=== PATIENT | male | born 1990 | race Caucasian/White ===

== ENCOUNTER 2022-01-25 07:57 | Emergency (ER) | payer BC ==
[2022-01-25 08:02] VITALS: BP 130/82; TEMP 98
--- NOTE | 2022-01-25 08:12 | ED ---
Upper Extremity HPI - General Chief Complaint: Extremity Injury, Upper Stated Complaint: hand injury Time Seen by Provider: 01/25/22 08:05 Source: patient Mode of arrival: ambulatory Limitations: no limitations - History of Present Illness Initial Comments: 31-year-old male with a benign history who states he tripped going upstairs at work last evening while holding a coffee cup in his right hand. He states he fell forward and landed against the stairs with the medial aspect of his right hand and complains of pain over the fifth metacarpal area. He believes he may have broken it. He has no prior history of injury. No other complaints or any other injury or pain. MD Complaint: Injury to:: right, hand - Related Data Allergies Allergy/AdvReac Type Severity Reaction Status Date / Time sulfamethoxazole Allergy Rash/Hives Verified 01/25/22 08:02 [From Bactrim] trimethoprim [From Bactrim] Allergy Rash/Hives Verified 01/25/22 08:02 Review of Systems ROS Statement: Those systems with pertinent positive or pertinent negative responses have been documented in the HPI. ROS Other: All systems not noted in ROS Statement are negative. Past Medical History Past Medical History: No Reported History History of Any Multi-Drug Resistant Organisms: None Reported Past Surgical History: No Surgical Hx Reported Past Psychological History: No Psychological Hx Reported Smoking Status: Vaper Past Alcohol Use History: None Reported Past Drug Use History: None Reported General Exam - General Exam Comments Initial Comments: This is a well-developed well-nourished awake alert oriented 4 male with a Ryde Coma Scale of 15 Limitations: no limitations General appearance: alert Head exam: Present: atraumatic, normocephalic, normal inspection Eye exam: Present: normal appearance, PERRL, EOMI. Absent: scleral icterus, conjunctival injection, periorbital swelling ENT exam: Present: normal exam Neck exam: Present: normal inspection, full ROM Cardiovascular Exam: Present: regular rate (On my exam) Extremities exam: Present: tenderness, normal capillary refill, other (Examination right upper extremity demonstrates tenderness and edema over the medial aspect of the right hand of the fifth metacarpal region no definitive step-off or crepitation. Capillary refill less than 2 seconds no motor deficits to the range of motion is limited secondary to pain proximal to t). Absent: full ROM Back exam: Present: full ROM Neurological exam: Present: alert, oriented X3, CN II-XII intact Psychiatric exam: Present: normal affect, normal mood Skin exam: Present: warm, dry, intact, normal color. Absent: rash Course Vital Signs 01/25/22 07:59 Temperature 98 F Pulse Rate 112 H Respiratory 20 Rate Blood Pressure 130/82 O2 Sat by Pulse 99 Oximetry - Reevaluation(s) Reevaluation #1: 01/25/22 09:00 Patient did state that the pain was 3/10 severity. He did not want any pain medication. Procedures - Orthopedic Splinting/Casting Injury #1 Side: right Upper Extremity Injury Location: short arm (OCL gutter splint short arm placed without difficulty. Wrapped with Kaufman roll and Tavon wrap. Patient tolerated this well. Good capillary refill, good neurovascular exam afterwards), hand Medical Decision Making - Radiology Data Radiology results: image reviewed (I did read the x-ray of the hand shows evidence of a spiral fracture of the fifth metacarpal with minimal di splacement.) Disposition Clinical Impression: Fracture of fifth metacarpal bone of right hand, Fall Disposition: HOME SELF-CARE Condition: Good Instructions (If sedation given, give patient instructions): Hand Fracture (ED) Additional Instructions: Ice elevation and [id number] ibuprofen for pain Is patient prescribed a controlled substance at d/c from ED?: No Referrals: None,Stated [Primary Care Provider] - 1-2 days Sami Marvin MD [STAFF PHYSICIAN] - 1-2 days Decision Date: 01/25/22 Decision Time: 09:00
--- NOTE | 2022-01-25 08:31 | XR ---
EXAMINATION TYPE: XR hand complete RT DATE OF EXAM: 01/25/2022 8:24 AM INDICATION: Patient age:Male; 31 years old; Reason for study: Trauma; [facility]. COMPARISON: None TECHNIQUE: Frontal, lateral and oblique views of the right hand were obtained. FINDINGS: Acute oblique minimally displaced fracture of the midshaft of the fifth metacarpal extendin g to the proximal metaphysis. No intra-articular extension. There is approximately 1.5 mm of displace ment. There is overlying soft tissue swelling. No joint dislocation. No radiopaque foreign bodies. IMPRESSION: Acute oblique minimally displaced fracture of the fifth metacarpal.
[2022-01-25 09:05] VITALS: PULSE 78; RESP 16
== END 2022-01-25 09:05 | disposition home or self-care (01) ==
LOC: EC 07:57
DX: S62.316A Displaced fracture of base of fifth metacarpal bone, right hand, initial encounter for closed fracture (principal); F17.290 Nicotine dependence, other tobacco product, uncomplicated; Z88.2 Allergy status to sulfonamides; W01.198A Fall on same level from slipping, tripping and stumbling with subsequent striking against other object, initial encounter
CPT/HCPCS: 99283